=== PATIENT | female | born 1975 | race African-American/Black ===

== ENCOUNTER 2017-11-17 23:51 | Emergency (ER) | payer SELFPAY ==
[2017-11-18] MEDS: traMADol 50 MG TABLET PO (00:28)
== END 2017-11-18 00:30 | disposition home or self-care (01) ==
LOC: ER 11-18 00:30
DX: K13.0 Diseases of lips (principal); W50.0XXA Accidental hit or strike by another person, initial encounter; Y93.89 Activity, other specified; Y92.89 Other specified places as the place of occurrence of the external cause; Y99.8 Other external cause status
CPT/HCPCS: 99283